=== PATIENT | male | born 1995 | race Caucasian/White ===

== ENCOUNTER 2018-09-27 22:01 | Emergency (ER) | payer OTHER ==
[2018-09-27] MEDS: LIDOCAINE 1% (MPF) 5 ML VIAL INFIL (22:28)
[2018-09-27] MEDS: IBUPROFEN 800 MG TAB PO (22:33)
[2018-09-27] MEDS: ACETAMINOPHEN 325 MG TAB PO (22:50)
[2018-09-27] MEDS: DIPHTH/TET/ACEL PERTUSS (ADULT) 0.5 ML VIAL IM* (22:51)
[2018-09-28] MEDS: BACITRACIN 0.5%/ZINC 28.35 GM OINT TOP (01:51)
== END 2018-09-28 01:58 | disposition home or self-care (01) ==
LOC: FTE 09-28 01:58
DX: S91.011A Laceration without foreign body, right ankle, initial encounter (principal); W25.XXXA Contact with sharp glass, initial encounter; Y92.9 Unspecified place or not applicable; Z23 Encounter for immunization
CPT/HCPCS: 12002; 73610-RT; 90471; 90715; 99283-25

== ENCOUNTER 2018-09-29 15:30 | Emergency (ER) | payer OTHER | END 2018-09-29 16:23 | disposition home or self-care (01) | LOC: E/R 15:30 | DX: Z48.01 Encounter for change or removal of surgical wound dressing (principal) | CPT/HCPCS: 99281; Z7502 ==

== ENCOUNTER 2018-10-11 13:39 | Emergency (ER) | payer OTHER | END 2018-10-11 14:38 | disposition home or self-care (01) | LOC: E/R 13:39 | DX: Z48.02 Encounter for removal of sutures (principal) | CPT/HCPCS: 99281; Z7502 ==